=== PATIENT | female | born 1975 | race Caucasian/White ===

== ENCOUNTER 2021-08-06 17:09 | Observation (INO) ==
[2021-08-06 19:36] LABS: Alanine Aminotransferase 17 U/L (12-78); Albumin Level 4.2 gm/dl (3.4-5.0); Aspartate Aminotransferase 12 U/L (15-37); BUN Creatinine Ratio 18.1 (10-20); Blood Urea Nitrogen 11 mg/dl (7-18); Carbon Dioxide 27 mmol/L (21-32); Chloride 109 mmol/L (98-107); Est GFR (African American) 124.7 ml/min; Est GFR (Non-African American) 107.6 ml/min; Glucose 93 mg/dl (70-99); Lipase 182 U/L (73-393); Potassium 3.7 mmol/L (3.5-5.1); Sodium 140 mmol/L (136-145)
[2021-08-06 19:39] LABS: Albumin Globulin Ratio 1.2 (0.9-2); Alkaline Phosphatase 53 U/L (45-117); Bilirubin,Total 0.3 mg/dl (0.2-1); Globulin 3.5 gm/dl (2.5-4.0); Total Protein 7.7 gm/dl (6.4-8.2)
[2021-08-06 19:41] LABS: Basophils # (auto) 0.01 K/uL (0-0.2); Basophils % (auto) 0.2 %; Eosinophils # (auto) 0.04 K/uL (0-0.5); Eosinophils % (auto) 0.8 %; Hematocrit (blood only) 27.1 % (37-47); Hemoglobin 6.9 g/dL (12.0-16.0); Hypochromasia Present; Lymphocytes # (auto) 1.36 K/uL (1.2-3.4); Lymphocytes % (auto) 27.1 %; Mean Corpuscular Hemoglobin 16.9 pg (25-34); Mean Corpuscular Hgb Conc 25.5 g/dL (32-36); Mean Corpuscular Volume 66.3 fL (80-100); Mean Platelet Volume 9.9 fL (7.4-10.4); Monocytes # (auto) 0.41 K/uL (0.11-0.59); Monocytes % (auto) 8.2 %; Neutrophils % (auto) 63.7 %; Ovalocytes 1+; Platelet Count 321 K/uL (130-400); RDW Coefficient of Variation 19.7 % (11.5-14.5); RDW Standard Deviation 47.5 fL (36.4-46.3); Red Blood Count 4.09 M/uL (4.2-5.4); Tear Drop Cells 1+; White Blood Count 5.02 K/uL (4.8-10.8)
[2021-08-06 19:51] LABS: Appearance Urine Turbid (Clear); Bacteria Urine Automated 2+ (Negative); Bilirubin Urine Negative (Negative); Blood Urine Negative (Negative); Color Urine Yellow; Epithelial Cell Urine Auto >30 /lpf (0-5); Glucose Urine UA Negative (Negative); Ketones Urine Negative (Negative); Leukocyte Esterase Urine Negative (Negative); Nitrite Urine Negative (Negative); Protein Urine Negative (Negative); Specific Gravity Urine 1.017 (1.000-1.030); Urobilinogen Urine Negative (Negative); pH Urine 7.5 (4.5-7.5)
[2021-08-06 19:53] LABS: Microcytosis Present
[2021-08-06] MEDS ORDERED: OPTIRAY 320 100ml IV ONE (19:58)
[2021-08-06] MEDS ORDERED: SODIUM CHLORIDE 0.9% 1000ML 1,000 ML IV ONE (19:58)
[2021-08-06 20:01] LABS: Troponin I < 0.015 ng/ml (0-0.045)
--- NOTE | 2021-08-06 20:02 | Emergency Department Note ---
Impression & Plan Anemia, Lower abdominal pain, Fibroid, uterine ED Provider Note Provider: Kermit Martin MD DATE OF SERVICE: 08/06/2021 CHIEF COMPLAINT: Right lower abdominal pain HISTORY OF PRESENT ILLNESS: Patient is a 46-year-old male stay she woke this morning with some pain in her right lower abdomen. Little bit of pain she reports of the right back earlier but this is resolved. Pain has worsened a little bit. Took ibuprofen earlier with minimal improvement. Denies any nausea, vomiting, or diarrhea. Denies any bloody or black stools. Patient states she is has normal menstrual cycles but denies significantly heavy bleeding. Denies any lightheadedness, chest pain, shortness of breath. Denies any faintness. Given the continued pain she became concerned so came here for evaluation. Patient denies a history of blood transfusions or significant anemia to her report. Patient states she did notice a firmness in her right lower abdomen as well this afternoon that was different. Patient does have a history of 5 prior C-sections decades ago. REVIEW OF SYSTEMS: A total of 10 review of systems was obtained and negative except as stated above in the HPI. PAST MEDICAL HISTORY: As noted above MEDICATIONS: Denies current prescription medications SOCIAL HISTORY: [place], lives at home PHYSICAL EXAM: GENERAL: alert and oriented in no acute distress on stretcher Head: normocephalic and atraumatic EYES: No injection, discharge or icterus. NECK: Trachea midline. Supple. ENT: Mucous membranes pink and moist. LUNGS: Airway patent. No retractions or tachypnea HEART: Regular rate and rhythm. ABDOMEN: Soft not peritoneal with some moderate tenderness in the right lower quadrant. A small amount of firmness in the right lower quadrant abdominal wall is noted but no large reducible mass in the inguinal region. With nurse airline station agent Cate present, Hemoccult negative brown stool. SKIN: Acyanotic, warm, dry, without rashes EXTREMITIES: Without swelling, tenderness or deformity NEUROLOGICAL: No focal deficits. No aphasia. No facial droop or slurred speech. Ambulatory. EK bpm normal sinus rhythm. No PVC or PAC. No acute ST segment elevation or depression. QTC 421. CONTINUOUS CARDIAC MONITORING: was ordered and showed a heart rate of 60-80s bpm in NSR Patient's laboratory studies and imaging reviewed. Differential includes Appendicitis, ovarian cyst, ovarian torsion, ectopic , TOA, PID, infections, diverticulitis, UTI, obstruction, mesenteric ischemia, aortic pathology, inflammatory bowel disease, renal colic, PUD, pancreatitis, biliary pathology, hernia, volvulus, constipation, as well as other pathologies. IMPRESSION/MEDICAL DECISION MAKING: Patient with onset of abdominal pain earlier today. Denies nosebleeds or heavy vaginal bleeding. Denies any blood in the stool. Not particularly tachycardic or hypotensive here. Patient's blood count was rechecked as it is significantly low just around 7. Patient with some tenderness and slight abdominal wall fullness in the right lower quadrant. No severe electrolyte abnormality noted. No evidence of transaminitis or pancreatitis based on labs. Urinalysis not impressive for infection at this point. Does not seem that consistent with kidney stone. Could be appendicitis but concern for possible bleeding, hemorrhagic cyst, abdominal hematoma, or other pathology and thus a CT scan of the abdomen pelvis to be completed. Type and screen was sent to the blood bank. EKG and troponin were completed although not having acute chest pain. No evidence of demand ischemia. CT report as below questioned possible enteritis/ileus as well as noted enlarged fibrous uterus. Not having significant symptoms consistent with enteritis or gastroenteritis given her lack of nausea, vomiting, or diarrhea. No active bleeding or free fluid is noted per the radiologist interpretation. Patient again is not been significant tachycardic or hypotensive. Given her significant anemia however question at this could be related to her uterine fibroids. CT report again and the abdominal exam consistent with fibroid masses. Patient pain worsened some and she was requesting some pain medication such as ibuprofen and given Toradol. Hemoccult negative. Consented for blood and ordered 1 unit given her significant anemia. Again not horribly symptomatic here. Did reach out to gynecology he did not recommend any acute intervention. She is not having active vaginal bleeding right now. Reports that she has had heavy bleeding period for 4 to 5 days frequently in the past but nothing that abnormal pe rher report. Again hypothesizing if this is related to that and chronic but can positively exclude a GI bleed at this point. Given her increased pain in the anemia requiring transfusion discussed with her observation. Hospitalist contacted. DIAGNOSIS: Anemia, lower abdominal pain, uterine fibroids DISPOSITION: Hospitalist will evaluate Patient was agreeable with this plan. Preliminary Findings Only See Final Report For Complete Findings CT ABDOMEN & PELVIS With Contrast: Mild dependent atelectasis bilaterally. Small hypodensities in the liver, some of which measure simple fluid attenuation, compatible with simple cysts. Some of the hypodensities are too small to definitively characterize. Calcified granulomas in the spleen. Small splenules. Evaluation of the stomach is limited by under distention. Small hypodensities in the right kidney are too small to definitively characterize. Collapsing cyst or corpus luteum in the right ovary. Fluid and gas-filled small bowel loops may represent enteritis or ileus. Enlarged fibroid uterus. Underdistended bladder. Mild splenomegaly. Radiologist: Roxi Zavala M.D. Study ready at 22:01 and initial results transmitted at 22:08 Critical Care I have personally spent 31 minutes of critical care time in the direct management of this patient. This includes bedside care, interpretation of diagnostic studies, and testing, discussion with consultants, patient, and other required patient management activities. These 31 minutes is in excess of all separately billable procedures. Past Med/Surg History Social History Smoking Status: Never smoker Feels Safe at Home: Yes Allergies Allergies Allergy/AdvReac Type Severity Reaction Status Date / Time No Known Allergies Allergy Verified 08/06/21 23:52 [id number] Allergy Unknown .. Uncoded 08/06/21 23:52 Home Meds Home Medications Medication Instructions Recorded Confirmed ibuprofen 200 mg tablet 600 mg PO Q6H PRN 08/06/21 08/06/21 multivitamin 1 tab PO DAILY 08/06/21 08/06/21 Results & Data (ED) Vital Signs Vital Signs - 24 hr 08/06/21 17:23 08/06/21 19:59 08/06/21 21:57 Temperature 36.5 C Temperature Source Skin Pulse Rate 81 71 Pulse Rate [Finger] Pulse Rhythm [Finger] Respiratory Rate 16 Blood Pressure 117/71 Blood Pressure [Right Arm] Blood Pressure Mean 86 Blood Pressure Mean [Right Arm] Blood Pressure Position Sitting Pulse Oximetry 98 95 Oxygen Delivery Method Room Air Sepsis Recent Fever Within 48 Hours No Sepsis New/Unexplained Change in Mental Status No Sepsis Action Taken by Nursing No Action Required 08/06/21 22:00 08/06/21 22:30 08/06/21 22:52 Temperature 37 C Temperature Source Oral Pulse Rate 78 79 Pulse Rate [Finger] 81 Pulse Rhythm [Finger] Regular Respiratory Rate 17 15 18 Blood Pressure Blood Pressure [Right Arm] 128/77 Blood Pressure Mean Blood Pressure Mean [Right Arm] 94 Blood Pressure Position Pulse Oximetry 100 Oxygen Delivery Method Room Air Sepsis Recent Fever Within 48 Hours Sepsis New/Unexplained Change in Mental Status Sepsis Action Taken by Nursing 08/06/21 23:20 08/06/21 23:40 08/06/21 23:55 Temperature 37.1 C 37.0 C Temperature Source Oral Oral Pulse Rate 74 68 71 Pulse Rate [Finger] Pulse Rhythm [Finger] Respiratory Rate 16 18 16 Blood Pressure 143/73 H 113/71 106/67 Blood Pressure [Right Arm] Blood Pressure Mean 96 85 80 Blood Pressure Mean [Right Arm] Blood Pressure Position Lying Lying Pulse Oximetry 99 97 98 Oxygen Delivery Method Sepsis Recent Fever Within 48 Hours Sepsis New/Unexplained Change in Mental Status Sepsis Action Taken by Nursing Laboratory Data Result diagrams: 08/06/21 20:11 08/06/21 19:05 Lab Results 08/06/21 08/06/21 08/06/21 Range/Units 19:05 19:05 19:05 WBC 5.02 (4.8-10.8) K/uL RBC 4.09 L (4.2-5.4) M/uL Hgb 6.9 L* (12.0-16.0) g/dL POC Hgb (12.0-16.0) g/dl Hct 27.1 L (37-47) % POC Hct (37-47) % MCV 66.3 L (80-100) fL MCH 16.9 L (25-34) pg MCHC 25.5 L (32-36) g/dL RDW Std Deviation 47.5 H (36.4-46.3) fL RDW Coeff of Kitty 19.7 H (11.5-14.5) % Plt Count 321 (130-400) K/uL MPV 9.9 (7.4-10.4) fL Immature Gran % (Auto) 0.0 % Neut % (Auto) 63.7 % Lymph % (Auto) 27.1 % Bland % (Auto) 8.2 % Eos % (Auto) 0.8 % Baso % (Auto) 0.2 % Neut # (Auto) 3.20 (1.4-6.5) K/uL Lymph # (Auto) 1.36 (1.2-3.4) K/uL Bland # (Auto) 0.41 (0.11-0.59) K/uL Eos # (Auto) 0.04 (0-0.5) K/uL Baso # (Auto) 0.01 (0-0.2) K/uL Immature Gran # (Auto) 0.00 (0.00-0.02) K/uL Hypochromasia Present Microcytosis Present Tear Drop Cells 1+ Ovalocytes 1+ PT (9.0-12.0) Seconds INR (0.9-1.1) POC Sodium (135-144) mmol/L Sodium 140 (136-145) mmol/L POC Potassium (3.3-5.0) mmol/L Potassium 3.7 (3.5-5.1) mmol/L POC Chloride (101-112) mmol/L Chloride 109 H (98-107) mmol/L Carbon Dioxide 27 (21-32) mmol/L POC Total CO2 (24-31) mmol/L Anion Gap 4.0 (3-11) POC Anion Gap (16-25) mmol/L POC BUN (7-18) mg/dl BUN 11 (7-18) mg/dl Creatinine 0.63 (0.6-1.2) mg/dl POC Creatinine (0.6-1.3) mg/dl Est Cr Clr Drug Dosing 122.0 ml/min Est GFR ( Amer) 124.7 ml/min Est GFR (Non-Af Amer) 107.6 ml/min BUN/Creatinine Ratio 18.1 (10-20) Glucose 93 (70-99) mg/dl POC Glucose (other) (70-99) mg/dl Calcium 9.0 (8.5-10.1) mg/dl POC Ioniz Calcium Agatha (1.12-1.32) mmol/l Total Bilirubin 0.3 (0.2-1) mg/dl AST 12 L (15-37) U/L ALT 17 (12-78) U/L Alkaline Phosphatase 53 (45-117) U/L Troponin I < 0.015 (0-0.045) ng/ml Total Protein 7.7 (6.4-8.2) gm/dl Albumin 4.2 (3.4-5.0) gm/dl Globulin 3.5 (2.5-4.0) gm/dl Albumin/Globulin Ratio 1.2 (0.9-2) Lipase 182 (73-393) U/L Urine Color Yellow Urine Appearance Turbid A (Clear) Urine pH 7.5 (4.5-7.5) Ur Specific [place] 1.017 (1.000-1.030) Urine Protein Negative (Negative) Urine Glucose (UA) Negative (Negative) Urine Ketones Negative (Negative) Urine Blood Negative (Negative) Urine Nitrite Negative (Negative) Urine Bilirubin Negative (Negative) Urine Urobilinogen Negative (Negative) Ur Leukocyte Esterase Negative (Negative) Urine WBC (Auto) 5-10 H (0-5) /hpf Urine RBC (Auto) 5-10 H (0-4) /hpf U Hyaline Cast (Auto) 1-5 (0-5) /lpf U Epithel Cells (Auto) >30 H (0-5) /lpf Urine Bacteria (Auto) 2+ H (Negative) POC Ur Test (NEG) POC Stool Occult Blood (Negative) COVID-19 Eval Order SARS-CoV-2 (PCR) (Negative) Blood Type Antibody Screen Crossmatch 08/06/21 08/06/21 08/06/21 Range/Units 19:05 19:05 20:11 WBC (4.8-10.8) K/uL RBC (4.2-5.4) M/uL Hgb (12.0-16.0) g/dL POC Hgb (12.0-16.0) g/dl Hct (37-47) % POC Hct (37-47) % MCV (80-100) fL MCH (25-34) pg MCHC (32-36) g/dL RDW Std Deviation (36.4-46.3) fL RDW Coeff of Kitty (11.5-14.5) % Plt Count (130-400) K/uL MPV (7.4-10.4) fL Immature Gran % (Auto) % Neut % (Auto) % Lymph % (Auto) % Bland % (Auto) % Eos % (Auto) % Baso % (Auto) % Neut # (Auto) (1.4-6.5) K/uL Lymph # (Auto) (1.2-3.4) K/uL Bland # (Auto) (0.11-0.59) K/uL Eos # (Auto) (0-0.5) K/uL Baso # (Auto) (0-0.2) K/uL Immature Gran # (Auto) (0.00-0.02) K/uL Hypochromasia Microcytosis Tear Drop Cells Ovalocytes PT 10.0 (9.0-12.0) Seconds INR 1.0 (0.9-1.1) POC Sodium (135-144) mmol/L Sodium (136-145) mmol/L POC Potassium (3.3-5.0) mmol/L Potassium (3.5-5.1) mmol/L POC Chloride (101-112) mmol/L Chloride (98-107) mmol/L Carbon Dioxide (21-32) mmol/L POC Total CO2 (24-31) mmol/L Anion Gap (3-11) POC Anion Gap (16-25) mmol/L POC BUN (7-18) mg/dl BUN (7-18) mg/dl Creatinine (0.6-1.2) mg/dl POC Creatinine (0.6-1.3) mg/dl Est Cr Clr Drug Dosing ml/min Est GFR ( Amer) ml/min Est GFR (Non-Af Amer) ml/min BUN/Creatinine Ratio (10-20) Glucose (70-99) mg/dl POC Glucose (other) (70-99) mg/dl Calcium (8.5-10.1) mg/dl POC Ioniz Calcium Agatha (1.12-1.32) mmol/l Total Bilirubin (0.2-1) mg/dl AST (15-37) U/L ALT (12-78) U/L Alkaline Phosphatase (45-117) U/L Troponin I (0-0.045) ng/ml Total Protein (6.4-8.2) gm/dl Albumin (3.4-5.0) gm/dl Globulin (2.5-4.0) gm/dl Albumin/Globulin Ratio (0.9-2) Lipase (73-393) U/L Urine Color Urine Appearance (Clear) Urine pH (4.5-7.5) Ur Specific [place] (1.000-1.030) Urine Protein (Negative) Urine Glucose (UA) (Negative) Urine Ketones (Negative) Urine Blood (Negative) Urine Nitrite (Negative) Urine Bilirubin (Negative) Urine Urobilinogen (Negative) Ur Leukocyte Esterase (Negative) Urine WBC (Auto) (0-5) /hpf Urine RBC (Auto) (0-4) /hpf U Hyaline Cast (Auto) (0-5) /lpf U Epithel Cells (Auto) (0-5) /lpf Urine Bacteria (Auto) (Negative) POC Ur Test NEG (NEG) POC Stool Occult Blood (Negative) COVID-19 Eval Order SARS-CoV-2 (PCR) (Negative) Blood Type A Positive Antibody Screen NEGATIVE Crossmatch See Detail 08/06/21 08/06/21 08/06/21 Range/Units 20:11 20:21 22:00 WBC 5.21 (4.8-10.8) K/uL RBC 4.34 (4.2-5.4) M/uL Hgb 7.4 L (12.0-16.0) g/dL POC Hgb 9.2 L (12.0-16.0) g/dl Hct 29.4 L (37-47) % POC Hct 27 L (37-47) % MCV 67.7 L (80-100) fL MCH 17.1 L (25-34) pg MCHC 25.2 L (32-36) g/dL RDW Std Deviation 48.5 H (36.4-46.3) fL RDW Coeff of Kitty 19.6 H (11.5-14.5) % Plt Count 317 (130-400) K/uL MPV (7.4-10.4) fL Immature Gran % (Auto) % Neut % (Auto) % Lymph % (Auto) % Bland % (Auto) % Eos % (Auto) % Baso % (Auto) % Neut # (Auto) (1.4-6.5) K/uL Lymph # (Auto) (1.2-3.4) K/uL Bland # (Auto) (0.11-0.59) K/uL Eos # (Auto) (0-0.5) K/uL Baso # (Auto) (0-0.2) K/uL Immature Gran # (Auto) (0.00-0.02) K/uL Hypochromasia Microcytosis Tear Drop Cells Ovalocytes PT (9.0-12.0) Seconds INR (0.9-1.1) POC Sodium 141 (135-144) mmol/L Sodium (136-145) mmol/L POC Potassium 3.8 (3.3-5.0) mmol/L Potassium (3.5-5.1) mmol/L POC Chloride 104 (101-112) mmol/L Chloride (98-107) mmol/L Carbon Dioxide (21-32) mmol/L POC Total CO2 25 (24-31) mmol/L Anion Gap (3-11) POC Anion Gap 17.0 (16-25) mmol/L POC BUN 11 (7-18) mg/dl BUN (7-18) mg/dl Creatinine (0.6-1.2) mg/dl POC Creatinine 0.5 L (0.6-1.3) mg/dl Est Cr Clr Drug Dosing ml/min Est GFR ( Amer) ml/min Est GFR (Non-Af Amer) ml/min BUN/Creatinine Ratio (10-20) Glucose (70-99) mg/dl POC Glucose (other) 94 (70-99) mg/dl Calcium (8.5-10.1) mg/dl POC Ioniz Calcium Agatha 1.24 (1.12-1.32) mmol/l Total Bilirubin (0.2-1) mg/dl AST (15-37) U/L ALT (12-78) U/L Alkaline Phosphatase (45-117) U/L Troponin I (0-0.045) ng/ml Total Protein (6.4-8.2) gm/dl Albumin (3.4-5.0) gm/dl Globulin (2.5-4.0) gm/dl Albumin/Globulin Ratio (0.9-2) Lipase (73-393) U/L Urine Color Urine Appearance (Clear) Urine pH (4.5-7.5) Ur Specific [place] (1.000-1.030) Urine Protein (Negative) Urine Glucose (UA) (Negative) Urine Ketones (Negative) Urine Blood (Negative) Urine Nitrite (Negative) Urine Bilirubin (Negative) Urine Urobilinogen (Negative) Ur Leukocyte Esterase (Negative) Urine WBC (Auto) (0-5) /hpf Urine RBC (Auto) (0-4) /hpf U Hyaline Cast (Auto) (0-5) /lpf U Epithel Cells (Auto) (0-5) /lpf Urine Bacteria (Auto) (Negative) POC Ur Test (NEG) POC Stool Occult Blood (Negative) COVID-19 Eval Order Covid19 at [facility] SARS-CoV-2 (PCR) (Negative) Blood Type Antibody Screen Crossmatch 08/06/21 08/06/21 Range/Units 22:00 23:01 WBC (4.8-10.8) K/uL RBC (4.2-5.4) M/uL Hgb (12.0-16.0) g/dL POC Hgb (12.0-16.0) g/dl Hct (37-47) % POC Hct (37-47) % MCV (80-100) fL MCH (25-34) pg MCHC (32-36) g/dL RDW Std Deviation (36.4-46.3) fL RDW Coeff of Kitty (11.5-14.5) % Plt Count (130-400) K/uL MPV (7.4-10.4) fL Immature Gran % (Auto) % Neut % (Auto) % Lymph % (Auto) % Bland % (Auto) % Eos % (Auto) % Baso % (Auto) % Neut # (Auto) (1.4-6.5) K/uL Lymph # (Auto) (1.2-3.4) K/uL Bland # (Auto) (0.11-0.59) K/uL Eos # (Auto) (0-0.5) K/uL Baso # (Auto) (0-0.2) K/uL Immature Gran # (Auto) (0.00-0.02) K/uL Hypochromasia Microcytosis Tear Drop Cells Ovalocytes PT (9.0-12.0) Seconds INR (0.9-1.1) POC Sodium (135-144) mmol/L Sodium (136-145) mmol/L POC Potassium (3.3-5.0) mmol/L Potassium (3.5-5.1) mmol/L POC Chloride (101-112) mmol/L Chloride (98-107) mmol/L Carbon Dioxide (21-32) mmol/L POC Total CO2 (24-31) mmol/L Anion Gap (3-11) POC Anion Gap (16-25) mmol/L POC BUN (7-18) mg/dl BUN (7-18) mg/dl Creatinine (0.6-1.2) mg/dl POC Creatinine (0.6-1.3) mg/dl Est Cr Clr Drug Dosing ml/min Est GFR ( Amer) ml/min Est GFR (Non-Af Amer) ml/min BUN/Creatinine Ratio (10-20) Glucose (70-99) mg/dl POC Glucose (other) (70-99) mg/dl Calcium (8.5-10.1) mg/dl POC Ioniz Calcium Agatha (1.12-1.32) mmol/l Total Bilirubin (0.2-1) mg/dl AST (15-37) U/L ALT (12-78) U/L Alkaline Phosphatase (45-117) U/L Troponin I (0-0.045) ng/ml Total Protein (6.4-8.2) gm/dl Albumin (3.4-5.0) gm/dl Globulin (2.5-4.0) gm/dl Albumin/Globulin Ratio (0.9-2) Lipase (73-393) U/L Urine Color Urine Appearance (Clear) Urine pH (4.5-7.5) Ur Specific [place] (1.000-1.030) Urine Protein (Negative) Urine Glucose (UA) (Negative) Urine Ketones (Negative) Urine Blood (Negative) Urine Nitrite (Negative) Urine Bilirubin (Negative) Urine Urobilinogen (Negative) Ur Leukocyte Esterase (Negative) Urine WBC (Auto) (0-5) /hpf Urine RBC (Auto) (0-4) /hpf U Hyaline Cast (Auto) (0-5) /lpf U Epithel Cells (Auto) (0-5) /lpf Urine Bacteria (Auto) (Negative) POC Ur Test (NEG) POC Stool Occult Blood Negative (Negative) COVID-19 Eval Order SARS-CoV-2 (PCR) NEGATIVE (Negative) Blood Type Antibody Screen Crossmatch Administered Medications Discontinued Medications Sodium Chloride (Nss 1000ml) 1,000 mls @ 999 mls/hr IV .[id number] ONE Stop: 08/06/21 20:58 Last Infusion: 08/06/21 22:37 Dose: 0 mls/hr Documented by: [id number] Admin: 08/06/21 20:49 Dose: 999 mls/hr Documented by: [id number] Ioversol (Optiray 320 100ml) 94 ml IV ONCE ONE Stop: 08/06/21 19:59 Last Admin: 08/06/21 19:59 Dose: 1 ml Documented by: [id number] Ketorolac Tromethamine (Ketorolac Tromethamine 15 Mg/Ml Vial) 15 mg IV NOW STA Stop: 08/06/21 23:03 Last Admin: 08/06/21 23:35 Dose: 15 mg Documented by: [id number] Discharge Plan Visit Data Chief Complaint: Abdominal Pain Stated Complaint: LOWER R ABDOMINAL PAIN ED Provider: Kermit Martin Discharge Problem: Anemia, Lower abdominal pain, Fibroid, uterine Patient Disposition: Being Evaluated by Hospitalist Forms Stand Alone Forms: [facility] Prescriptions Prescriptions: No Action multivitamin Tablet 1 tab PO DAILY RF: 0 ibuprofen 200 mg Tablet 600 mg PO Q6H PRN (Reason: Pain) RF: 0 Referrals Referrals: PCP,NO [Primary Care Provider] -
[2021-08-06 20:33] LABS: iSTAT Creatinine 0.5 mg/dl (0.6-1.3); iSTAT Hemoglobin 9.2 g/dl (12.0-16.0); iSTAT Ionized Calcium 1.24 mmol/l (1.12-1.32); iSTAT Potassium 3.8 mmol/L (3.3-5.0)
[2021-08-06 20:53] LABS: Hematocrit (blood only) 29.4 % (37-47); Hemoglobin 7.4 g/dL (12.0-16.0); Mean Corpuscular Hemoglobin 17.1 pg (25-34); Mean Corpuscular Hgb Conc 25.2 g/dL (32-36); Mean Corpuscular Volume 67.7 fL (80-100); Platelet Count 317 K/uL (130-400); RDW Coefficient of Variation 19.6 % (11.5-14.5); RDW Standard Deviation 48.5 fL (36.4-46.3); Red Blood Count 4.34 M/uL (4.2-5.4); White Blood Count 5.21 K/uL (4.8-10.8)
[2021-08-06] MEDS ORDERED: SODIUM CHLORIDE 0.9% 250 ML IV PRN (23:02)
[2021-08-06] MEDS ORDERED: KETOROLAC TROMETHAMINE 15 MG/ML VIAL IV STA (23:02)
[2021-08-07 00:09] LABS: Iron 12 mcg/dl (35-150); Total Iron Binding Capacity 488 mcg/dl (250-450)
--- NOTE | 2021-08-07 00:12 | History & Physical Report ---
Date of Service August 07, 2021 Assessment & Plan (1) Anemia: Plan: Hemoglobin 7.4 upon admission. Hemoccult negative Patient reports heavy menstrual bleeding, likely associated with enlarged fibroid uterus ED is transfusing 1 unit P BRC's. Repeat laboratories in a.m. Unless develops other symptoms overnight, recommendation would be to establish care with HYDROGRAPHER (2) Lower abdominal pain: Plan: Secondary to fibroid uterus CT suggest possible enteritis/ileus, but patient reports no symptoms (3) Fibroid, uterine: Plan: As noted above, likely source of anemia due to associated significant menstrual bleeding We will need to follow-up with HYDROGRAPHER History of Present Illness Chief Complaint: The patient presents to the emergency department with complaint of lower abdominal and pelvic pain that began earlier this morning, without improvement with ibuprofen Primary Care Provider: NO PCP The patient is a 46-year-old female with known significant past medical history, who is not seen regularly by physicians, who presents to the emergency department symptoms as noted above. Work-up in the emergency department included the following abnormal laboratories: Hemoglobin 7.4, hematocrit 29.4. COVID-[address] scan of abdomen and pelvis: Liver cysts. Calcified granulomas in the spleen. Small splenule's. Collapsing cyst or corpus luteum in the right ovary. Fluid and gas-filled small bowel loops may represent enteritis or ileus. Enlarged fibroid uterus. Mild splenomegaly. Allergies Allergy/AdvReac Type Severity Reaction Status Date / Time No Known Allergies Allergy Verified 08/06/21 23:52 [id number] Allergy Unknown .. Uncoded 08/06/21 23:52 Home Medications Medication Instructions Recorded Confirmed Type ibuprofen 200 mg tablet 600 mg PO Q6H PRN 08/06/21 08/06/21 History multivitamin 1 tab PO DAILY 08/06/21 08/06/21 History Past Med/Surg History Social History Smoking Status: Never smoker Feels Safe at Home: Yes Review of Systems Review of Systems: The patient denies chest pain, palpitations, shortness of breath, dyspnea on exertion, cough, lower extremity swelling, sore throat, fevers, chills, sweats, weight change, fatigue, nausea, vomiting, diarrhea , constipation, blood in urine or stool, dysuria, urinary frequency or urgency, lightheadedness, dizziness, headache, memory loss, loss of consciousness, rash, abnormal bruising or bleeding, imbalance, focal or generalized weakness, numbness or tingling in arms or legs, generalized arthralgias or myalgias, back or neck pain, or night sweats. The review of systems is otherwise negative other than for that already noted above, and at least 10 systems have been reviewed. Physical Exam Physical Exam: The patient is awake, alert and oriented 3, well developed and well nourished, normocephalic and atraumatic, lying in bed and in no acute distress. HEENT--PERRL, EOMI, mucous membranes and oropharynx normal Neck--supple. No JVD. No bruits. Thyroid normal, trachea midline, no adenopathy. Heart--normal S1 and S2. No murmurs, rubs or gallops. Lungs--clear bilaterally, no respiratory distress, no accessory muscle use. Abdomen--normal bowel sounds and soft. Palpable masslike structure/uterus up to just below umbilicus Extremities--no cyanosis or clubbing. No edema. Dermatologic--normal skin turgor, normal color, no abnormal lymph nodes, no rash. Neurologic--cranial nerves II through XII grossly intact. Rheumatologic--normal range of motion. Psychiatric--normal affect. Results & Data Results & Data ([facility]) Vital Signs (Past 12 Hours) Vital Signs Temp Pulse Pulse Resp BP BP Pulse Ox 08/06/21 23:55 71 16 106/67 98 08/06/21 23:40 98.6 F 68 18 113/71 97 08/06/21 23:20 98.8 F 74 16 143/73 H 99 08/06/21 22:52 98.6 F 81 18 128/77 100 08/06/21 22:30 79 15 08/06/21 22:00 78 17 08/06/21 21:57 71 16 08/06/21 19:59 95 08/06/21 17:23 97.7 F 81 117/71 98 Laboratory Results Laboratory Results WBC 5.21 K/uL (4.8-10.8) 08/06/21 20:11 RBC 4.34 M/uL (4.2-5.4) 08/06/21 20:11 Hgb 7.4 g/dL (12.0-16.0) L 08/06/21 20:11 POC Hgb 9.2 g/dl (12.0-16.0) L 08/06/21 20:21 Hct 29.4 % (37-47) L 08/06/21 20:11 POC Hct 27 % (37-47) L 08/06/21 20:21 MCV 67.7 fL (80-100) L 08/06/21 20:11 MCH 17.1 pg (25-34) L 08/06/21 20:11 MCHC 25.2 g/dL (32-36) L 08/06/21 20:11 RDW Std Deviation 48.5 fL (36.4-46.3) H 08/06/21 20:11 RDW Coeff of Kitty 19.6 % (11.5-14.5) H 08/06/21 20:11 Plt Count 317 K/uL (130-400) 08/06/21 20:11 MPV 9.9 fL (7.4-10.4) 08/06/21 19:05 Immature Gran % (Auto) 0.0 % 08/06/21 19:05 Neut % (Auto) 63.7 % 08/06/21 19:05 Lymph % (Auto) 27.1 % 08/06/21 19:05 Wetzel % (Auto) 8.2 % 08/06/21 19:05 Eos % (Auto) 0.8 % 08/06/21 19:05 Baso % (Auto) 0.2 % 08/06/21 19:05 Neut # (Auto) 3.20 K/uL (1.4-6.5) 08/06/21 19:05 Lymph # (Auto) 1.36 K/uL (1.2-3.4) 08/06/21 19:05 Wetzel # (Auto) 0.41 K/uL (0.11-0.59) 08/06/21 19:05 Eos # (Auto) 0.04 K/uL (0-0.5) 08/06/21 19:05 Baso # (Auto) 0.01 K/uL (0-0.2) 08/06/21 19:05 Immature Gran # (Auto) 0.00 K/uL (0.00-0.02) 08/06/21 19:05 Hypochromasia Present 08/06/21 19:05 Microcytosis Present 08/06/21 19:05 Tear Drop Cells 1+ 08/06/21 19:05 Ovalocytes 1+ 08/06/21 19:05 PT 10.0 Seconds (9.0-12.0) 08/06/21 19:05 INR 1.0 (0.9-1.1) 08/06/21 19:05 POC Sodium 141 mmol/L (135-144) 08/06/21 20:21 Sodium 140 mmol/L (136-145) 08/06/21 19:05 POC Potassium 3.8 mmol/L (3.3-5.0) 08/06/21 20:21 Potassium 3.7 mmol/L (3.5-5.1) 08/06/21 19:05 POC Chloride 104 mmol/L (101-112) 08/06/21 20:21 Chloride 109 mmol/L (98-107) H 08/06/21 19:05 Carbon Dioxide 27 mmol/L (21-32) 08/06/21 19:05 POC Total CO2 25 mmol/L (24-31) 08/06/21 20:21 Anion Gap 4.0 (3-11) 08/06/21 19:05 POC Anion Gap 17.0 mmol/L (16-25) 08/06/21 20:21 POC BUN 11 mg/dl (7-18) 08/06/21 20:21 BUN 11 mg/dl (7-18) 08/06/21 19:05 Creatinine 0.63 mg/dl (0.6-1.2) 08/06/21 19:05 POC Creatinine 0.5 mg/dl (0.6-1.3) L 08/06/21 20:21 Est Cr Clr Drug Dosing 122.0 ml/min 08/06/21 19:05 Est GFR ( Amer) 124.7 ml/min 08/06/21 19:05 Est GFR (Non-Af Amer) 107.6 ml/min 08/06/21 19:05 BUN/Creatinine Ratio 18.1 (10-20) 08/06/21 19:05 Glucose 93 mg/dl (70-99) 08/06/21 19:05 POC Glucose (other) 94 mg/dl (70-99) 08/06/21 20:21 Calcium 9.0 mg/dl (8.5-10.1) 08/06/21 19:05 POC Ioniz Calcium Agatha 1.24 mmol/l (1.12-1.32) 08/06/21 20:21 Iron 12 mcg/dl (35-150) L 08/06/21 19:05 TIBC 488 mcg/dl (250-450) H 08/06/21 19:05 Total Bilirubin 0.3 mg/dl (0.2-1) 08/06/21 19:05 AST 12 U/L (15-37) L 08/06/21 19:05 ALT 17 U/L (12-78) 08/06/21 19:05 Alkaline Phosphatase 53 U/L (45-117) 08/06/21 19:05 Troponin I < 0.015 ng/ml (0-0.045) 08/06/21 19:05 Total Protein 7.7 gm/dl (6.4-8.2) 08/06/21 19:05 Albumin 4.2 gm/dl (3.4-5.0) 08/06/21 19:05 Globulin 3.5 gm/dl (2.5-4.0) 08/06/21 19:05 Albumin/Globulin Ratio 1.2 (0.9-2) 08/06/21 19:05 Lipase 182 U/L (73-393) 08/06/21 19:05 Urine Color Yellow 08/06/21 19:05 Urine Appearance Turbid (Clear) A 08/06/21 19:05 Urine pH 7.5 (4.5-7.5) 08/06/21 19:05 Ur Specific [place] 1.017 (1.000-1.030) 08/06/21 19:05 Urine Protein Negative (Negative) 08/06/21 19:05 Urine Glucose (UA) Negative (Negative) 08/06/21 19:05 Urine Ketones Negative (Negative) 08/06/21 19:05 Urine Blood Negative (Negative) 08/06/21 19:05 Urine Nitrite Negative (Negative) 08/06/21 19:05 Urine Bilirubin Negative (Negative) 08/06/21 19:05 Urine Urobilinogen Negative (Negative) 08/06/21 19:05 Ur Leukocyte Esterase Negative (Negative) 08/06/21 19:05 Urine WBC (Auto) 5-10 /hpf (0-5) H 08/06/21 19:05 Urine RBC (Auto) 5-10 /hpf (0-4) H 08/06/21 19:05 U Hyaline Cast (Auto) 1-5 /lpf (0-5) 08/06/21 19:05 U Epithel Cells (Auto) >30 /lpf (0-5) H 08/06/21 19:05 Urine Bacteria (Auto) 2+ (Negative) H 08/06/21 19:05 POC Ur Test NEG (NEG) 08/06/21 19:05 POC Stool Occult Blood Negative (Negative) 08/06/21 23:01 COVID-19 Eval Order Covid19 at [facility] 08/06/21 22:00 SARS-CoV-2 (PCR) NEGATIVE (Negative) 08/06/21 22:00 Blood Type A Positive 08/06/21 20:11 Antibody Screen NEGATIVE 08/06/21 20:11 Crossmatch See Detail 08/06/21 20:11 Diagnostic Findings [facility] Patient: HOLGER VALENZUELA (Female) : 75 Status: ER Date: 08/06/21 21:54 Room #: History: rlq pain anemia Slices: [phone] Priors: Tech: Amari Sheridan @ [phone] Exams: CT ABDOMEN & PELVIS With Contrast Contrast: IV Amt: 94 ml; optiVouchr Accession Numbers: [id number] Referring Physician: REFERRED SELF Preliminary Findings Only See Final Report For Complete Findings CT ABDOMEN & PELVIS With Contrast: Mild dependent atelectasis bilaterally. Small hypodensities in the liver, some of which measure simple fluid attenuation, compatible with simple cysts. Some of the hypodensities are too small to definitively characterize. Calcified granulomas in the spleen. Small splenules. Evaluation of the stomach is limited by under distention. Small hypodensities in the right kidney are too small to definitively characterize. Collapsing cyst or corpus luteum in the right ovary. Fluid and gas-filled small bowel loops may represent enteritis or ileus. Enlarged fibroid uterus. Underdistended bladder. Mild splenomegaly. Radiologist: Roxi Zavala M.D. Study ready at 22:01 and initial results transmitted at 22:08 *This report constitutes a preliminary interpretation only. Non-acute findings felt to be unrelated to the clinical presentation may not be discussed in this report. The study will be interpreted and a final report will be generated by the local Radiologist the following shift. To reach the hospital radiology department call [phone]. If a discrepancy is found between the preliminary and final interpretations of this study, please notify us via our Client Portal at [email or web address] under QA [email or web address].You can also fax this report with a description of the discrepancy, or include the final report, to our daytime fax number [phone].If faxing, please indicate the severity of discrepancy using one of the following categories: [ ] 1 - Agree/Informational [ ] 2 - Unlikely to Affect Management [ ] 3 - Possible Eventual Change of Management [ ] 4 - Probable Immediate Change of Management For all other patient related information, please fax us at [phone]. [id number] Code Status & VTE Plan Code Status Full code VTE Prophylaxis Plan VTE Prophylaxis will be ordered: Yes PG Care Time/CCT Total # of Minutes Spent Total Time Spent with Patient: Total time spent is greater than 50% in coordination of care (as documented) at patient's floor/unit and/or counseling patient: Coding Level of Care Code INT OBSERVATION CARE 70M LVL 3 Diagnoses Anemia D64.9 Anemia type: unspecified type Lower abdominal pain R10.30 Fibroid, uterine D25.9 Uterine leiomyoma location: unspecified location (1) Anemia Anemia type: unspecified type Qualified Code(s): D64.9 - Anemia, unspecified (2) Fibroid, uterine Uterine leiomyoma location: unspecified location Qualified Code(s): D25.9 - Leiomyoma of uterus, unspecified
[2021-08-07] MEDS ORDERED: NSS + 20MEQ KCL 20 MEQ/1,000 ML BAG IV SCH (03:00)
[2021-08-07] MEDS ORDERED: ONDANSETRON INJ 2 MG/ML 2 ML VIAL IV PRN (03:00)
[2021-08-07 03:51] LABS: Albumin Level 3.3 gm/dl (3.4-5.0); BUN Creatinine Ratio 16.6 (10-20); Calcium 8.3 mg/dl (8.5-10.1); Est GFR (African American) 125.3 ml/min; Est GFR (Non-African American) 108.1 ml/min; Potassium 3.5 mmol/L (3.5-5.1)
[2021-08-07 03:54] LABS: Hemoglobin 7.2 g/dL (12.0-16.0); Mean Corpuscular Hemoglobin 18.9 pg (25-34); Mean Corpuscular Hgb Conc 27.7 g/dL (32-36); Mean Corpuscular Volume 68.2 fL (80-100); Mean Platelet Volume 9.6 fL (7.4-10.4); Platelet Count 241 K/uL (130-400); RDW Coefficient of Variation 20.8 % (11.5-14.5); RDW Standard Deviation 51.9 fL (36.4-46.3); Red Blood Count 3.81 M/uL (4.2-5.4); White Blood Count 4.41 K/uL (4.8-10.8)
[2021-08-07 03:57] LABS: Basophils # (auto) 0.01 K/uL (0-0.2); Basophils % (auto) 0.2 %; Eosinophils # (auto) 0.08 K/uL (0-0.5); Eosinophils % (auto) 1.8 %; Giant Platelets 1+; Hypochromasia Present; Immature Granulocytes # (auto) 0.01 K/uL (0.00-0.02); Immature Granulocytes % (auto) 0.2 %; Lymphocytes # (auto) 1.63 K/uL (1.2-3.4); Monocytes # (auto) 0.44 K/uL (0.11-0.59); Neutrophils # (auto) 2.24 K/uL (1.4-6.5); Neutrophils % (auto) 50.8 %; Ovalocytes 1+; Tear Drop Cells 1+
[2021-08-07 03:59] LABS: Albumin Globulin Ratio 1.1 (0.9-2); Bilirubin,Total 0.6 mg/dl (0.2-1); Globulin 3.1 gm/dl (2.5-4.0); Total Protein 6.4 gm/dl (6.4-8.2)
[2021-08-07 04:25] LABS: Folate (Folic Acid) > 20.00 ng/ml (>5.38); Vitamin B12 377 pg/ml (193-986)
--- NOTE | 2021-08-07 07:56 | CT Scan Report ---
CT abd pelvis IV con only CLINICAL HISTORY: RLQ pain, anemia COMPARISON STUDY: None. TECHNIQUE: A dose lowering technique was utilized adhering to the principles of ALARA. CT DOSE: 439.90 mGy.cm FINDINGS: Lower chest: Mild atelectasis is seen at dependent portions of bilateral lower lobes.. Liver: The contrast-enhanced liver is normal in size, contour, and attenuation. There is no intrahepa tic biliary ductal dilatation. The hepatic veins and portal veins are patent. Multiple hypoattenuatin g lesions are seen throughout right and left lobe of the liver, largest is measuring 1.2 cm in diamet er is seen within left lobe of the liver. Statistically this lesions most likely represent cysts or h emangiomas. Gallbladder: Is fluid-filled and folded. No evidence of gallstones or pericholecystic edema is seen. Spleen: Normal in size and attenuation. Pancreas: Unremarkable. Adrenal glands: Unremarkable. Kidneys: There is symmetric renal cortical enhancement. The kidneys are normal in size without hydron ephrosis.No nephrolithiasis is seen. Multiple hypoattenuating lesions are seen within the right renal parenchyma, measuring up to 0.9 cm in size. Pelvic viscera: Urinary bladder is decompressed which limits evaluation. Uterus is enlarged with comp kierra heterogeneously enhancing 6.7 x 8.0 cm lesion within its wall which could represent fibroids vers us other etiology. Heterogeneous/complex appearance of the right adnexa a small amount of surrounding fluid and corpus l uteal pseudocyst. There is 2.5 cm possibly enhancing lesion is seen at the inferior aspect of the rig ht adnexa, anteriorly to the urinary bladder wall which could represent extension from adnexa or lachelle tional uterine fibroid. Bowel: Bowel loops are nondilated. Appendix is not well seen. Peritoneum: There is no intraperitoneal free air or abdominal ascites. Vasculature: The abdominal aorta is normal in course and caliber. Prominent right gonadal vein. Adenopathy: None. Skeletal structures: No destructive osseous lesions are seen. IMPRESSION: 1. Complex appearance of the right adnexa and corpus luteum cyst. Enlarged right gonadal vein which sometimes could be seen in pelvic congestion syndrome. Further evaluation with pelvic ultrasound migh t be considered. 2. Appendix is not well seen. No definite fat stranding is seen within the right lower quadrant. 3. Enlarged uterus with large heterogeneous mass within its wall which might represent fibroids vers us other etiology. Further evaluation with pelvic MRI on nonemergency basis is suggested. 4. Multiple hypoattenuating lesions within liver parenchyma and within right kidney, could represent cysts versus other etiology. 5. No hydronephrosis or nephrolithiasis. 6. The rest of findings as above. ACT 112: Negative or not required by law. The above report was generated using voice recognition software. It may contain grammatical, syntax o r spelling errors. Electronically signed by: Cristiana Gorman DO 08/07/2021 7:54 AM
[2021-08-07] MEDS: ACETAMINOPHEN 325 MG TAB PO PRN ×2 (08:23→17:24)
--- NOTE | 2021-08-07 09:03 | Electrocardiogram Report ---
Test Reason : Blood Pressure : / mmHG Vent. Rate : 071 BPM Atrial Rate : 071 BPM P-R Int : 158 ms QRS Dur : 072 ms QT Int : 388 ms P-R-T Axes : 067 010 022 degrees QTc Int : 421 ms Normal sinus rhythm Left atrial enlargement Low voltage QRS Borderline ECG No previous ECGs available Confirmed by Tate Guevara ([id number]) on 08/07/2021 9:03:10 AM Referred By: REFERRED SELF Confirmed By:Tate Guevara
[2021-08-07 09:25] LABS: Hematocrit (blood only) 28.5 % (37-47); Hemoglobin 7.4 g/dL (12.0-16.0)
[2021-08-07] MEDS ORDERED: KETOROLAC TROMETHAMINE 15 MG/ML VIAL IV ONE (11:00)
[2021-08-07] MEDS ORDERED: SODIUM CHLORIDE 0.9% 250 ML IV PRN ×2 (11:06→11:10)
--- NOTE | 2021-08-07 16:07 | OB/GYN Consultation ---
Date of Consultation August 07, 2021 Assessment & Plan (1) Anemia: I would suggest transfusing her at least 1 more unit of packed cells preferably 2. She is not currently bleeding nor does she have bleeding in between her periods. I suspect that the anemia has been getting worse over the last 6 months based on patient's history. (2) Fibroid, uterine: On ultrasound and by exam she has a large fundal fibroid and most likely multiple fibroids in her uterus. The 6 to 8 cm fibroid appears to be degenerating which can account for her current pain. Typically this pain is self-limiting and resolves after several days on both ibuprofen and narcotics as needed. Once her hemoglobin has been stabilized she should be able to be treated as AN outpatient and managed on p.o. pain medications. The plan would be to control it continue iron daily and to follow-up with the [facility] physician group [employer] physicians to discuss management of the uterine fibroids. There is a possibility that the degenerating fibroid may reduce in size as it i nvolutes on its own. Her periods may also decrease in heaviness as a result. She will need a follow-up ultrasound in our office to evaluate her her uterus, endometrial lining, and assess for other uterine fibroids. Our office will set up an appointment and ultrasound in our office for this coming week. History of Present Illness Reason for Consultation: anemia symptomatic uterine fibroids Attending Physician: Carmelo Small History of Present Illness The patient is a 46-year-old 5 para 5-0-0-5 white female who presents to the emergency room this morning because of persistent right lower quadrant pain. On evaluation she is noted to be anemic with a hemoglobin of 6. CT scan showed an enlarged uterus with a 6 to 8 cm heterogeneous mass on the fundus of the uterus and evidence of a recent corpus luteum cyst. Patient relates that she had been fine and without pain until the morning of her arrival emergency room she took ibuprofen which helped reduce the pain but not relieve it completely. The pain worsened and she presented in the emergency room especially after she could feel a mass in her right lower quadrant. Studies were noted as above as above. 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 On those days she changes a pad about every 2-3 hours. She has minimal cramping with her periods and no bleeding in between her periods. Her periods have gotten significantly heavier over the last 6 months. She also notes that her fatigue level has also increased during that same time. Obstetrically she has had 5 deliveries all . She had no complications following any of her sections. Her first section was done for failure to progress. Subsequent sections were scheduled. Her youngest child is now age 17. She does not have any chronic medical problems that she is aware of. Allergies Allergy/AdvReac Type Severity Reaction Status Date / Time No Known Allergies Allergy Verified 08/06/21 23:52 Home Medications Medication Instructions Recorded Confirmed Type ibuprofen 200 mg tablet 600 mg PO Q6H PRN 08/06/21 08/06/21 History multivitamin 1 tab PO DAILY 08/06/21 08/06/21 History Patient History Social History Smoking Status: Never smoker Hx Alcohol Use: No Hx Substance Use: No Preferred Language: Swedish Communication Ability: Effective Milliner Helper Required: No Beliefs That Will Affect Care: None Current Living Situation: Family Feels Safe at Home: Yes Assistive Devices: None Review of Systems Review of Systems: All systems reviewed & are unremarkable except as noted in HPI & below Physical Exam Constitutional: WD/WN, vitals as above Gastrointestinal (Abdomen): tender firm palpable mass in RLQ - uterus overall enlarged to 16 -17 week size. Uterus overall is firm and tender to palpation. Psychiatric: A+Ox3, euthymic affect Genitourinary: deferred Results & Data ([facility]) Vital Signs (Past 12 Hours) Vital Signs Temp Pulse Pulse Resp BP BP Pulse Ox 08/07/21 15:00 99.1 F 65 16 107/61 100 08/07/21 14:15 99.1 F 64 16 104/69 100 08/07/21 14:02 99.0 F 70 16 104/66 100 08/07/21 13:47 99.0 F 61 16 101/74 99 08/07/21 13:00 98.2 F 67 16 111/61 100 08/07/21 11:18 63 12 121/74 100 08/07/21 05:57 72 72 14 116/71 116/71 99 PG Care Time/CCT Total # of Minutes Spent Total Time Spent with Patient: Total time spent is greater than 50% in coordination of care (as documented) at patient's floor/unit and/or counseling patient: Coding Level of Care Code 56754 Office/OBS Consult Lvl 3 Diagnoses Anemia D64.9 Anemia type: unspecified type Fibroid, uterine D25.9 Uterine leiomyoma location: unspecified location (1) Anemia Anemia type: unspecified type Qualified Code(s): D64.9 - Anemia, unspecified (2) Fibroid, uterine Uterine leiomyoma location: unspecified location Qualified Code(s): D25.9 - Leiomyoma of uterus, unspecified
[2021-08-07 17:54] LABS: Hemoglobin 8.8 g/dL (12.0-16.0); Mean Corpuscular Hemoglobin 19.8 pg (25-34); Mean Corpuscular Hgb Conc 27.5 g/dL (32-36); Mean Corpuscular Volume 72.1 fL (80-100); Platelet Count 249 K/uL (130-400); RDW Coefficient of Variation 21.3 % (11.5-14.5); RDW Standard Deviation 56.5 fL (36.4-46.3); Red Blood Count 4.44 M/uL (4.2-5.4); White Blood Count 4.71 K/uL (4.8-10.8)
[2021-08-07 18:10] LABS: Basophils # (auto) 0.01 K/uL (0-0.2); Basophils % (auto) 0.2 %; Eosinophils # (auto) 0.09 K/uL (0-0.5); Eosinophils % (auto) 1.9 %; Hypochromasia Present; Immature Granulocytes # (auto) 0.01 K/uL (0.00-0.02); Immature Granulocytes % (auto) 0.2 %; Lymphocytes # (auto) 1.38 K/uL (1.2-3.4); Lymphocytes % (auto) 29.3 %; Monocytes % (auto) 8.5 %; Neutrophils # (auto) 2.82 K/uL (1.4-6.5); Neutrophils % (auto) 59.9 %; Ovalocytes 1+; Polychromasia 1+
[2021-08-07 21:29] LABS: Hemoglobin 8.8 g/dL (12.0-16.0)
[2021-08-08] MEDS: ACETAMINOPHEN 325 MG TAB PO PRN (00:14)
[2021-08-08 06:51] LABS: Hematocrit (blood only) 32.1 % (37-47); Hemoglobin 8.9 g/dL (12.0-16.0); Mean Corpuscular Hemoglobin 19.8 pg (25-34); Mean Corpuscular Hgb Conc 27.7 g/dL (32-36); Mean Corpuscular Volume 71.3 fL (80-100); Platelet Count 244 K/uL (130-400); RDW Coefficient of Variation 21.3 % (11.5-14.5); RDW Standard Deviation 55.5 fL (36.4-46.3); White Blood Count 4.01 K/uL (4.8-10.8)
[2021-08-08 06:57] LABS: Anisocytosis Present; Basophils # (auto) 0.02 K/uL (0-0.2); Basophils % (auto) 0.5 %; Eosinophils # (auto) 0.11 K/uL (0-0.5); Eosinophils % (auto) 2.7 %; Hypochromasia Present; Lymphocytes # (auto) 1.49 K/uL (1.2-3.4); Lymphocytes % (auto) 37.2 %; Monocytes # (auto) 0.37 K/uL (0.11-0.59); Monocytes % (auto) 9.2 %; Neutrophils # (auto) 2.02 K/uL (1.4-6.5); Neutrophils % (auto) 50.4 %; Tear Drop Cells 1+
[2021-08-08 07:01] LABS: Albumin Level 3.4 gm/dl (3.4-5.0); BUN Creatinine Ratio 16.4 (10-20); Calcium 8.6 mg/dl (8.5-10.1); Creatinine Clr Calc Pharmacy 109.4 ml/min; Est GFR (African American) 124.7 ml/min; Est GFR (Non-African American) 107.6 ml/min; Potassium 4.1 mmol/L (3.5-5.1)
[2021-08-08 07:03] LABS: Albumin Globulin Ratio 1.1 (0.9-2); Bilirubin,Total 0.7 mg/dl (0.2-1); Globulin 3.2 gm/dl (2.5-4.0); Total Protein 6.6 gm/dl (6.4-8.2)
--- NOTE | 2021-08-08 08:12 | Gynecologic Progress Note ---
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 Hgb this AM is 8.9 would continue with iron supplement daily OUr office will call her to set up follow up appointment to discuss treatment options Admission and Anticipated Discharge Date Admission Date: August 07, 2021 Subjective She feels better over all -pain is better now as well- just taking po tylenol. no bleeding. received 2 units PRBC's. Review of Systems Review of Systems: All systems reviewed & are unremarkable except as noted in HPI & below Physical Exam Constitutional: WD/WN, vitals as above Gastrointestinal (Abdomen): tender mass RLQ - no change in size Psychiatric: A+Ox3, euthymic affect Results & Data ([facility]) Vital Signs (Past 12 Hours) Vital Signs Temp Pulse Pulse Resp BP Pulse Ox 08/08/21 07:54 65 08/08/21 07:17 98.4 F 67 18 123/76 97 08/08/21 04:25 98.2 F 68 18 132/78 96 08/08/21 00:27 98.8 F 66 18 136/82 99 08/07/21 22:19 66 PG Care Time/CCT Total # of Minutes Spent Total Time Spent with Patient: Total time spent is greater than 50% in coordination of care (as documented) at patient's floor/unit and/or counseling patient: Coding Level of Care Code 45860 Inpt Consult Level 3 Diagnoses Fibroid, uterine D25.9 Uterine leiomyoma location: unspecified location (1) Fibroid, uterine Uterine leiomyoma location: unspecified location Qualified Code(s): D25.9 - Leiomyoma of uterus, unspecified
[2021-08-08] MEDS ORDERED: oxyCODONE/ACETAMINOPHEN 5mg/325mg TAB PO PRN (08:13)
--- NOTE | 2021-08-09 16:25 | Discharge Summary ---
Date of Service August 08, 2021 Admission HPI Per Admitting Provider The patient is a 46-year-old female with known significant past medical history, who is not seen regularly by physicians, who presents to the emergency department symptoms as noted above. Work-up in the emergency department included the following abnormal laboratories: Hemoglobin 7.4, hematocrit 29.4. COVID-[address] scan of abdomen and pelvis: Liver cysts. Calcified granulomas in the spleen. Small splenule's. Collapsing cyst or corpus luteum in the right ovary. Fluid and gas-filled small bowel loops may represent enteritis or ileus. Enlarged fibroid uterus. Mild splenomegaly. Principal Diagnosis Acute blood loss anemia from heavy menstrual bleeding Discharge Exam The patient is awake, alert and oriented 3, well developed and well nourished, normocephalic and atraumatic, lying in bed and in no acute distress. HEENT--PERRL, EOMI, mucous membranes and oropharynx normal Neck--supple. No JVD. No bruits. Thyroid normal, trachea midline, no adenopathy. Heart--normal S1 and S2. No murmurs, rubs or gallops. Lungs--clear bilaterally, no respiratory distress, no accessory muscle use. Abdomen--normal bowel sounds and soft. Palpable masslike structure/uterus up to just below umbilicus Extremities--no cyanosis or clubbing. No edema. Dermatologic--normal skin turgor, normal color, no abnormal lymph nodes, no rash. Neurologic--cranial nerves II through XII grossly intact. Rheumatologic--normal range of motion. Psychiatric--normal affect. Discharge Data Allergies Allergy/AdvReac Type Severity Reaction Status Date / Time No Known Allergies Allergy Verified 08/06/21 23:52 Consultations 08/06/21 23:29 ED Decision to Admit Stat 08/07/21 08:26 Consult Gynecology Routine Ordered Studies 08/06/21 19:44 CT abd pelvis IV con only Urgent Hospital Course (1) Anemia: Hemoglobin 7.4 upon admission. Hemoccult negative Patient reports heavy menstrual bleeding, likely associated with enlarged fibroid uterus ED is transfusing 1 unit P BRC's. Repeat laboratories in a.m. Unless develops other symptoms overnight, recommendation would be to establish care with LABORATORY IMMUNOLOGIST After 2 units of PRBC, hemoglobin improved to 8.9. Patient is cleared for discharge. Appreciate input from BARREL MARKER I think she can be discharged from the customer support representative standpoint now. Hgb this AM is 8.9 would continue with iron supplement daily [facility] office will call her to set up follow up appointment to discuss treatment options (2) Lower abdominal pain: Secondary to fibroid uterus CT suggest possible enteritis/ileus, but patient reports no symptoms (3) Fibroid, uterine: As noted above, likely source of anemia due to associated significant menstrual bleeding We will need to follow-up with LABORATORY IMMUNOLOGIST Total Time Total Time Spent Total Time Spent (In Minutes): 32 Discharge Plan Discharge Items Patient Disposition: Home - Self-Care Reason For Visit: SYMPTOMATIC ANEMIA Discharge Diagnosis: Symptomatic anemia Activity: Resume your previous activity Non-emergency contact: Primary Care Provider Call non-emergency contact if: you have any medication questions Follow-up/Referrals: PCPMARIE [Primary Care Provider] - Diet: Regular Addtl Attending Provider Instructions: You have been hospitalized for an acute medical problem. During your stay at [facility], we have made an effort to correct the problem that brought you to the hospital while keeping you as comfortable as possible. Medications were used to bring your condition under control and your discharge instructions will include directions for any medications you should take after leaving the hospital. Please make sure you see your Primary Care Provider as part of your follow up plan. Addtl Jockey Agent Provider Instructions: [facility] office will call you to set up an appointment for a consultation to discuss treatment of the fibroids as well as an ultrasound. If you do not hear from our office by next Tuesday , or you have any concerns or your pain returns, please call our office: [phone] The pianos and organs salesperson during office hours is Karon- her extension is [phone] Pending Studies at Discharge: No Stand-Alone Forms: [facility], Smoking Cessation Medications and DC Order Prescriptions: New oxycodone-acetaminophen 5-325 mg tablet 1 tab PO Q6H PRN (Reason: pain) Qty: 14 RF: 0 ibuprofen 600 mg tablet 600 mg PO Q6H PRN (Reason: pain) Qty: 60 RF: 1 ferrous sulfate 325 mg (65 mg iron) tablet 325 mg PO DAILY Qty: 30 RF: 3 Continued multivitamin Tablet 1 tab PO DAILY RF: 0 ibuprofen 200 mg Tablet 600 mg PO Q6H PRN (Reason: Pain) RF: 0 Discharge Orders: Discharge Order (Routine); Ordered 08/08/21 Ordered By: Carmelo Small Admission Data Admit Date/Time: 08/07/21 00:12 Attending Provider: Carmelo Small Admit Provider: Real Lisa Primary Care Provider: PCP,NO Other Providers: Real Lisa ; Amie Silva ; Renuka Alba ; Ilene Hernadez ; Molly Yang ; Yolis Early ; Letty Escobedo ; Nick Gomez ; Amee Aquino ; Kat Santillan ; Jluis Kraft Other Interventions: Discharge Summary Assessment (RN) Last Done: 08/08/21 09:43 Coding Level of Care Code D/C DAY MANAGEMENT >30 MINS Diagnoses Anemia D64.9 Anemia type: unspecified type Lower abdominal pain R10.30 Fibroid, uterine D25.9 Uterine leiomyoma location: unspecified location
== END 2021-08-08 10:11 | disposition home or self-care (01) ==
LOC: EDINP 17:09 → ED 17:09 → SUATTDRO 08-07 00:12 → EDINP 08-07 01:26 → 2N 08-07 16:25

== ENCOUNTER 2021-08-27 15:24 | Inpatient (IN) ==
[2021-08-27 16:42] LABS: Basophils # (auto) 0.01 K/uL (0-0.2); Basophils % (auto) 0.2 %; Eosinophils # (auto) 0.08 K/uL (0-0.5); Eosinophils % (auto) 1.6 %; Hematocrit (blood only) 35.1 % (37-47); Hemoglobin 10.3 g/dL (12.0-16.0); Immature Granulocytes # (auto) 0.01 K/uL (0.00-0.02); Immature Granulocytes % (auto) 0.2 %; Lymphocytes # (auto) 0.88 K/uL (1.2-3.4); Lymphocytes % (auto) 17.8 %; Mean Corpuscular Hemoglobin 23.1 pg (25-34); Mean Corpuscular Hgb Conc 29.3 g/dL (32-36); Mean Corpuscular Volume 78.7 fL (80-100); Monocytes % (auto) 8.1 %; Neutrophils # (auto) 3.55 K/uL (1.4-6.5); Neutrophils % (auto) 72.1 %; Platelet Count 261 K/uL (130-400); RDW Coefficient of Variation 30.1 % (11.5-14.5); RDW Standard Deviation 82.2 fL (36.4-46.3); Red Blood Count 4.46 M/uL (4.2-5.4); White Blood Count 4.93 K/uL (4.8-10.8)
[2021-08-27 16:55] LABS: Partial Thromboplastin Ratio 0.9; Partial Thromboplastin Time 22.5 Seconds (21.0-31.0); Prothrombin Time 10.2 Seconds (9.0-12.0)
[2021-08-27 17:04] LABS: Alanine Aminotransferase 15 U/L (12-78); Albumin Level 3.7 gm/dl (3.4-5.0); Aspartate Aminotransferase 11 U/L (15-37); BUN Creatinine Ratio 11.6 (10-20); Blood Urea Nitrogen 7 mg/dl (7-18); Calcium 9.4 mg/dl (8.5-10.1); Carbon Dioxide 29 mmol/L (21-32); Chloride 105 mmol/L (98-107); Est GFR (African American) 125.3 ml/min; Est GFR (Non-African American) 108.1 ml/min; Glucose 107 mg/dl (70-99); Potassium 3.8 mmol/L (3.5-5.1); Sodium 138 mmol/L (136-145)
[2021-08-27 17:07] LABS: Alkaline Phosphatase 62 U/L (45-117); Bilirubin,Total 0.5 mg/dl (0.2-1); Globulin 3.7 gm/dl (2.5-4.0); Total Protein 7.4 gm/dl (6.4-8.2)
--- NOTE | 2021-08-27 17:28 | Emergency Department Note ---
Impression & Plan Bilateral pulmonary embolism, Acute deep vein thrombosis (DVT) of both lower extremities ED Provider Note NAME: HOLGER VALENZUELA AGE: 46 SEX: F : 1975 ARRIVES VIA: Walk-In INFORMANT: Patient ED PROVIDER(S): Pancho Barajas DO CHIEF COMPLAINT: b/l leg pain HPI: Patient is a 46-year-old female status post hysterectomy performed this past Tuesday by . She started having leg pain on Tuesday in the left leg and now its in bilateral legs. Is worse in the right leg and is an 8 out of 10. She denies any headache or change in vision. No chest pain or shortness of breath but does feel weak. Her belly pain is still present but improving. No dysuria, urgency or frequency. No other exacerbating or remitting factors. She has never had clots before. ROS: See above HPI for pertinent positives & negatives. A total of 10 systems reviewed and were otherwise negative. PAST MEDICAL HISTORY:See Below PAST SURGICAL HISTORY:See Below FAMILY HISTORY:See Below SOCIAL HISTORY:See Below HOME MEDICATIONS:See Below ALLERGIES:See Below VITALS:See Below PHYSICAL EXAMINATION: GENERAL: Sitting up in bed, alert, well appearing, well nourished, no distress, non-toxic EYE EXAM: normal conjunctiva. PERRL and EOM's grossly intact. OROPHARYNX: no exudate, no erythema, lips, buccal mucosa, and tongue normal and mucous membranes are moist NECK: supple, no nuchal rigidity, no adenopathy, non-tender LUNGS: Clear to auscultation. Normal chest wall mechanics HEART: no murmurs, S1 normal and S2 normal ABDOMEN: abdomen soft, non-tender, normo-active bowel sounds, no masses, no rebound or guarding. UPPER EXTREMITIES: upper extremities are grossly normal. LOWER EXTREMITIES: No pitting edema. NEURO EXAM: Normal sensorium, cranial nerves II-XII grossly intact, normal speech, no gross weakness of arms, no gross weakness of legs. MEDICAL DECISION MAKING: Patient is a 46-year-old female who was found as an outpatient have bilateral DVTs. She did have some chest pain while she was here after initial evaluation. IV was established with orders obtained. Labs show no significant leukocytosis and mild anemia 10.3. INR was unremarkable. BMP along with LFTs bilirubin was unremarkable. Ultrasound of the lower extremities was reviewed and fairly extensive. EKGs were unremarkable. CT angio of the chest showed bilateral PEs. Covid was negative. Discussed with Dr. Early from out any FLIGHT COMMUNICATIONS SPECIALIST in regards to anticoagulation with the recent hysterectomy performed on Tuesday. She reviewed the case with and believe that was reasonable to start heparin at this time. We only gave a half dose bolus initially and they will titrate up with heparin. Discussed with the hospitalist for further evaluation. Patient was updated bedside. She denied all other bleeding risk factors. Triage Nursing notes reviewed. Limited review of prior medical records performed Vital Signs: reviewed and remarkable for no significant abnormalities Differential diagnosis: DVT, musculoskeletal, infection, joint effusion, trauma, lymphedema, idiopathic, CHF, as well as other pathologies. ER treatment provided: See below Diagnostics interpreted by me: ECG: Sinus rhythm rate 70 Normal axis No PVCs QTC 399 T wave inversions in septal leads EKG #2 Sinus rhythm rate 74 Normal axis No PVCs T wave inversions in the septal leads QTC 401 Cardiac Monitoring: An order was placed for continuous cardiac monitoring. The monitor shows a rate of 72 with sinus rhythm. Laboratory studies: As stated above and show below. Imaging studies: CT angio of the chest shows bilateral PEs Consultation(s): Discussed with Dr. Early from not any DIGITAL MEDIA STRATEGIST service as discussed above Discussed with hospitalist for admission Procedures: none Critical Care: I have personally spent 32 minutes of critical care time in the direct management of this patient. This includes bedside care, interpretation of diagnostic studies, and testing, discussion with consultants, patient, and family members, and other required patient management activities. This 32 minutes is in excess of all separately billable procedures. Past Med/Surg History Medical History Abnormal uterine bleeding (AUB) Anemia Enlarged uterus Uterine fibroid Surgical History History of x 5 History of laparoscopy Family History Other No family history of adverse response to anesthesia Denies family history of Ovarian cancer Breast cancer Colorectal cancer Social History Smoking Status: Never smoker Second Hand Exposure: No; Hx Alcohol Use: No Hx Substance Use: No Preferred Language: Ivorian Communication Ability: Effective Administrator Pesticide Required: No Beliefs That Will Affect Care: None Current Living Situation: Family Feels Safe at Home: Yes Assistive Devices: None Allergies Allergies Allergy/AdvReac Type Severity Reaction Status Date / Time No Known Allergies Allergy Verified 08/27/21 19:11 Home Meds Home Medications Medication Instructions Recorded Confirmed ferrous sulfate 325 mg (65 mg 325 mg PO QAM 08/11/21 08/27/21 iron) tablet Previous Rx's Medication Instructions Recorded oxycodone-acetaminophen 5 mg-325 1 tab PO Q6H PRN #14 tab 08/08/21 mg tablet Results & Data (ED) Vital Signs Vital Signs - 24 hr 08/27/21 15:32 08/27/21 17:25 08/27/21 18:55 Temperature 36.5 C Temperature Source Temporal Artery Scan Pulse Rate 89 Pulse Rate [Left Finger] 80 Respiratory Rate 18 18 Respiratory Effort / Characteristics Non-Labored Spontaneous Respiratory Depth Normal Respiratory Pattern Regular Blood Pressure 109/73 Blood Pressure [Right Arm] 136/80 134/79 Blood Pressure Mean 85 Blood Pressure Mean [Right Arm] 98 97 Pulse Oximetry 97 100 Oxygen Delivery Method Room Air Room Air Sepsis Recent Fever Within 48 Hours No Sepsis New/Unexplained Change in Mental Status No Sepsis Action Taken by Nursing No Action Required Laboratory Data Result diagrams: 08/27/21 16:30 08/27/21 16:30 Lab Results 08/27/21 08/27/21 08/27/21 Range/Units 16:30 16:30 16:30 WBC 4.93 (4.8-10.8) K/uL RBC 4.46 (4.2-5.4) M/uL Hgb 10.3 L (12.0-16.0) g/dL Hct 35.1 L (37-47) % MCV 78.7 L (80-100) fL MCH 23.1 L (25-34) pg MCHC 29.3 L (32-36) g/dL RDW Std Deviation 82.2 H (36.4-46.3) fL RDW Coeff of Kitty 30.1 H (11.5-14.5) % Plt Count 261 (130-400) K/uL Immature Gran % (Auto) 0.2 % Neut % (Auto) 72.1 % Lymph % (Auto) 17.8 % Beaver % (Auto) 8.1 % Eos % (Auto) 1.6 % Baso % (Auto) 0.2 % Neut # (Auto) 3.55 (1.4-6.5) K/uL Lymph # (Auto) 0.88 L (1.2-3.4) K/uL Beaver # (Auto) 0.40 (0.11-0.59) K/uL Eos # (Auto) 0.08 (0-0.5) K/uL Baso # (Auto) 0.01 (0-0.2) K/uL Immature Gran # (Auto) 0.01 (0.00-0.02) K/uL Polychromasia 1+ PT 10.2 (9.0-12.0) Seconds INR 1.0 (0.9-1.1) APTT 22.5 (21.0-31.0) Seconds PTT Ratio 0.9 Sodium 138 (136-145) mmol/L Potassium 3.8 (3.5-5.1) mmol/L Chloride 105 (98-107) mmol/L Carbon Dioxide 29 (21-32) mmol/L Anion Gap 4.0 (3-11) BUN 7 (7-18) mg/dl Creatinine 0.62 (0.6-1.2) mg/dl Est Cr Clr Drug Dosing Not Reportable Est GFR ( Amer) 125.3 ml/min Est GFR (Non-Af Amer) 108.1 ml/min BUN/Creatinine Ratio 11.6 (10-20) Glucose 107 H (70-99) mg/dl Calcium 9.4 (8.5-10.1) mg/dl Total Bilirubin 0.5 (0.2-1) mg/dl AST 11 L (15-37) U/L ALT 15 (12-78) U/L Alkaline Phosphatase 62 (45-117) U/L Total Protein 7.4 (6.4-8.2) gm/dl Albumin 3.7 (3.4-5.0) gm/dl Globulin 3.7 (2.5-4.0) gm/dl Albumin/Globulin Ratio 1.0 (0.9-2) COVID-19 Eval Order SARS-CoV-2 (PCR) (Negative) 08/27/21 08/27/21 Range/Units 18:42 18:42 WBC (4.8-10.8) K/uL RBC (4.2-5.4) M/uL Hgb (12.0-16.0) g/dL Hct (37-47) % MCV (80-100) fL MCH (25-34) pg MCHC (32-36) g/dL RDW Std Deviation (36.4-46.3) fL RDW Coeff of Kitty (11.5-14.5) % Plt Count (130-400) K/uL Immature Gran % (Auto) % Neut % (Auto) % Lymph % (Auto) % Beaver % (Auto) % Eos % (Auto) % Baso % (Auto) % Neut # (Auto) (1.4-6.5) K/uL Lymph # (Auto) (1.2-3.4) K/uL Beaver # (Auto) (0.11-0.59) K/uL Eos # (Auto) (0-0.5) K/uL Baso # (Auto) (0-0.2) K/uL Immature Gran # (Auto) (0.00-0.02) K/uL Polychromasia PT (9.0-12.0) Seconds INR (0.9-1.1) APTT (21.0-31.0) Seconds PTT Ratio Sodium (136-145) mmol/L Potassium (3.5-5.1) mmol/L Chloride (98-107) mmol/L Carbon Dioxide (21-32) mmol/L Anion Gap (3-11) BUN (7-18) mg/dl Creatinine (0.6-1.2) mg/dl Est Cr Clr Drug Dosing Est GFR ( Amer) ml/min Est GFR (Non-Af Amer) ml/min BUN/Creatinine Ratio (10-20) Glucose (70-99) mg/dl Calcium (8.5-10.1) mg/dl Total Bilirubin (0.2-1) mg/dl AST (15-37) U/L ALT (12-78) U/L Alkaline Phosphatase (45-117) U/L Total Protein (6.4-8.2) gm/dl Albumin (3.4-5.0) gm/dl Globulin (2.5-4.0) gm/dl Albumin/Globulin Ratio (0.9-2) COVID-19 Eval Order Covid19 at [facility] SARS-CoV-2 (PCR) NEGATIVE (Negative) Administered Medications Heparin Sodium/Dextrose (Heparin Sodium/Dextrose) 25,000 units in 500 mls @ 22 mls/hr IV .[id number] NILA; Protocol Stop: 09/26/21 18:29 Last Admin: 08/27/21 18:51 Dose: 1,100 units/hr, 22 mls/hr Documented by: [id number] Cosigned by: [id number] Discontinued Medications Heparin Sodium (Porcine) (Heparin Sod (Porcine) 1000 Unit/Ml) 1 units IV NOW ONE Stop: 08/27/21 18:26 Last Admin: 08/27/21 18:52 Dose: 2,500 units Documented by: [id number] Cosigned by: [id number] Heparin Sodium/Dextrose (Heparin Iv Adult Wt-Based Standard With Bolus Protocol) 1 ea IV NOW STA; Protocol Stop: 08/27/21 18:11 Last Admin: 08/27/21 19:04 Dose: Not Given Documented by: [id number] Ioversol (Optiray 320 125ml) 120 ml IV ONCE ONE Stop: 08/27/21 17:46 Last Admin: 08/27/21 17:47 Dose: 120 ml Documented by: [id number] Oxycodone HCl (Oxycodone Hcl Ir 5 Mg Tab (Immediate Release)) 5 mg PO NOW STA Stop: 08/27/21 19:50 Last Admin: 08/27/21 20:20 Dose: Not Given Documented by: [id number] Oxycodone HCl (Oxycodone Hcl Ir 5 Mg Tab (Immediate Release)) Confirm Administered Dose 5 mg .ROUTE .STK-MED ONE Stop: 08/27/21 19:56 Last Admin: 08/27/21 19:57 Dose: 5 mg Documented by: [id number] Imaging Data Radiologist's Impression: Chest CTA 08/27/21 17:17 CHEST CTA for PULMONARY ARTER[address] CT DOSE: 295.96 mGy.cm HISTORY: Positive DVT. Assess for pulmonary emboli. TECHNIQUE: Multiaxial CT images of the chest were performed following the intravenous administration of contrast to evaluate the pulmonary arteries. Maximal intensity projection images were also obtained. A dose lowering technique was utilized adhering to the principles of ALARA. COMPARISON STUDY: None. FINDINGS: Normal caliber thoracic aorta with no evidence for dissection. The heart is normal in size. No pleural or pericardial effusions. There are multiple scattered bilateral segmental and subsegmental pulmonary emboli. No evidence for right-sided heart strain. Limited views of the upper abdomen demonstrate a few scattered hypodense lesions within the liver. These favor cysts. There is a punctate calcified granuloma within the spleen. Normal esophagus. No mediastinal or hilar lymphadenopathy. No fractures within the visualized osseous structures. No pneumothorax. A few scattered calcified granulomas are seen within the lungs. No pulmonary infarcts identified. No focal lung consolidations to suggest pneumonia. IMPRESSION: Extensive bilateral pulmonary emboli. No evidence for right-sided heart strain. ACT 112: Negative or not required by law. Electronically signed by: Rich Wall M.D. 08/27/2021 5:58 PM Discharge Plan Visit Data Chief Complaint: Abnormal Labs/Diagnostic Testing Stated Complaint: HAD US;FOUND BLOOD CLOTS IN BOTH LEGS ED Provider: Pancho Barajas Discharge Problem: Bilateral pulmonary embolism, Acute deep vein thrombosis (DVT) of both lower extremities Forms Stand Alone Forms: [facility] [employer] Prescriptions Prescriptions: No Action oxycodone-acetaminophen 5-325 mg tablet 1 tab PO Q6H PRN (Reason: pain) Qty: 14 RF: 0 ferrous sulfate 325 mg (65 mg iron) tablet 325 mg PO QAM RF: 0 Referrals Referrals: PCP,NO [Primary Care Provider] -
[2021-08-27] MEDS ORDERED: OPTIRAY 320 125ml IV ONE (17:45)
--- NOTE | 2021-08-27 18:00 | CT Scan Report ---
CHEST CTA for PULMONARY ARTERIES CT DOSE: 295.96 mGy.cm HISTORY: Positive DVT. Assess for pulmonary emboli. TECHNIQUE: Multiaxial CT images of the chest were performed following the intravenous administration of contrast to evaluate the pulmonary arteries. Maximal intensity projection images were also obtaine d. A dose lowering technique was utilized adhering to the principles of ALARA. COMPARISON STUDY: None. FINDINGS: Normal caliber thoracic aorta with no evidence for dissection. The heart is normal in size. No pleural or pericardial effusions. There are multiple scattered bilateral segmental and subsegment al pulmonary emboli. No evidence for right-sided heart strain. Limited views of the upper abdomen dem onstrate a few scattered hypodense lesions within the liver. These favor cysts. There is a punctate c alcified granuloma within the spleen. Normal esophagus. No mediastinal or hilar lymphadenopathy. No f ractures within the visualized osseous structures. No pneumothorax. A few scattered calcified granulo mas are seen within the lungs. No pulmonary infarcts identified. No focal lung consolidations to sugg est pneumonia. IMPRESSION: Extensive bilateral pulmonary emboli. No evidence for right-sided heart strain. ACT 112: Negative or not required by law. Electronically signed by: Rich Wall M.D. 08/27/2021 5:58 PM
[2021-08-27] MEDS ORDERED: Heparin IV Adult Wt-Based Standard WITH Bolus Protocol IV STA (18:10)
[2021-08-27] MEDS ORDERED: HEPARIN SOD (PORCINE) 1000 UNIT/ML IV ONE (18:25)
[2021-08-27] MEDS ORDERED: HEPARIN SODIUM/DEXTROSE 25,000 UNITS/500 ML BAG IV SCH (18:30)
[2021-08-27 19:19] LABS: Polychromasia 1+
--- NOTE | 2021-08-27 19:45 | History & Physical Report ---
Date of Service August 27, 2021 Assessment & Plan (1) Bilateral pulmonary embolism: Plan: Started on heparin IV drip in the ER. Will continue on this overnight. Switch to NOAC tomorrow if stable. (2) Anemia: Plan: Hgb increased from prior suspect from chronic fibroid bleeding Repeat CBC in AM (3) Acute deep vein thrombosis (DVT) of both lower extremities: Plan: Anticoagulation as above Plan: Diet - regular Dispositon - admit to med/tele Admission and Anticipated Discharge Date Admission Date: August 27, 2021 History of Present Illness Chief Complaint: DVT on outpatient imaging Primary Care Provider: NO PCP Prema Rosado is a 46 year old female who presents to the ER after outpatient imaging arranged by her CRYOLITE RECOVERY OPERATOR showed bilateral DVTs. She underwent laparoscopic supracervical hysterectomy and b/l salpingectomy performed by on August 24. Yesterday morning she noticed left leg swelling. Last night she noticed it in her right leg as well. She called her surgeon who organized outpatient US doppler which confirmed b/l DVTs and was sent to the ER for further workup. No history of DVT, PEs, autoimmune conditions, hypercoagulopathy. No family history of these either. In the ER CT for PE showed extensive bilateral pulmonary emboli. No evidence for right-sided heart strain. She was referred to medicine for admission and ongoing management of PE. Allergies Allergy/AdvReac Type Severity Reaction Status Date / Time No Known Allergies Allergy Verified 08/27/21 19:11 Home Medications Medication Instructions Recorded Confirmed Type oxycodone-acetaminophen 5 mg-325 1 tab PO Q6H PRN #14 tab 08/08/21 08/27/21 Rx mg tablet ferrous sulfate 325 mg (65 mg 325 mg PO QAM 08/11/21 08/27/21 History iron) tablet Past Med/Surg History Medical History Abnormal uterine bleeding (AUB) Anemia Enlarged uterus Uterine fibroid Surgical History History of x 5 History of laparoscopy Family History Other No family history of adverse response to anesthesia Denies family history of Ovarian cancer Breast cancer Colorectal cancer Social History Smoking Status: Unknown if ever smoked Second Hand Exposure: No; Hx Alcohol Use: No Hx Substance Use: No Preferred Language: Nepali Communication Ability: Effective Rivet Sticker Required: No Beliefs That Will Affect Care: None Current Living Situation: Spouse Other Information That Helps Us Care for You: No Feels Safe at Home: Yes Safety Concerns: Feels Safe At This Time Assistive Devices: None Review of Systems Review of Systems: All systems reviewed & are unremarkable except as noted in HPI & below Physical Exam Constitutional: WD/WN, vitals as above Respiratory: normal respiratory effort, lungs clear to auscultation Cardiovascular: RRR, no murmur, no edema Extremities: + calf tenderness (b/l right > left) Gastrointestinal (Abdomen): normal bowel sounds, soft, nontender, no hepatosplenomegaly Skin: no rashes, warm and dry Neurologic: moves all extremities and awake; not confused Psychiatric: A+Ox3, euthymic affect Results & Data Results & Data ([facility]) Vital Signs (Past 12 Hours) Vital Signs Temp Pulse Pulse Resp BP BP Pulse Ox 08/27/21 18:55 80 18 134/79 100 08/27/21 17:25 136/80 08/27/21 15:32 36.5 C 89 18 109/73 97 Diagnostic Findings CHEST CTA for PULMONARY ARTERIES CT DOSE: 295.96 mGy.cm HISTORY: Positive DVT. Assess for pulmonary emboli. TECHNIQUE: Multiaxial CT images of the chest were performed following the intravenous administration of contrast to evaluate the pulmonary arteries. Maximal intensity projection images were also obtained. A dose lowering technique was utilized adhering to the principles of ALARA. COMPARISON STUDY: None. FINDINGS: Normal caliber thoracic aorta with no evidence for dissection. The heart is normal in size. No pleural or pericardial effusions. There are multiple scattered bilateral segmental and subsegmental pulmonary emboli. No evidence for right-sided heart strain. Limited views of the upper abdomen demonstrate a few scattered hypodense lesions within the liver. These favor cysts. There is a punctate calcified granuloma within the spleen. Normal esophagus. No mediastinal or hilar lymphadenopathy. No fractures within the visualized osseous structures. No pneumothorax. A few scattered calcified granulomas are seen within the lungs. No pulmonary infarcts identified. No focal lung consolidations to suggest pneumonia. IMPRESSION: Extensive bilateral pulmonary emboli. No evidence for right-sided heart strain. BILATERAL LOWER EXTREMITY VENOUS DOPPLER HISTORY: bilateral lower leg pain s/p hysterectomy COMPARISON STUDY: None. FINDINGS: The right common femoral vein is patent. There is occlusive thrombus within the distal right superficial femoral vein, popliteal vein, posterior tibial vein, and peroneal veins. The left common femoral and superficial femoral veins are patent. There is occlusive DVT seen within the left popliteal vein, posterior tibial veins, peroneal veins, and anterior tibial veins. IMPRESSION: Extensive bilateral lower extremity DVT as described above. ECG Indication: chest pain Rate (beats per minute): 74 Rhythm: normal sinus Findings: no acute ischemic change Comparison ECG Date: from (August 06, 2021) Change: no significant change Code Status & VTE Plan Code Status Full VTE Prophylaxis Plan VTE Prophylaxis will be ordered: Yes PG Care Time/CCT Total # of Minutes Spent Total Time Spent with Patient: Total time spent is greater than 50% in coordination of care (as documented) at patient's floor/unit and/or counseling patient: Coding Level of Care Code 64079 Initial Inpt Care Lvl 2 Diagnoses Bilateral pulmonary embolism I26.99 Anemia D64.9 Anemia type: unspecified type Acute deep vein thrombosis (DVT) of both lower extremities I82.403 Affected thrombotic vein of extremity: unspecified vein of extremity (1) Anemia Anemia type: unspecified type Qualified Code(s): D64.9 - Anemia, unspecified (2) Acute deep vein thrombosis (DVT) of both lower extremities Affected thrombotic vein of extremity: unspecified vein of extremity Qualified Code(s): I82.403 - Acute embolism and thrombosis of unspecified deep veins of lower extremity, bilateral
[2021-08-27] MEDS ORDERED: oxyCODONE HCL IR 5 MG TAB (IMMEDIATE RELEASE) PO STA ×2 (19:49→23:59)
[2021-08-27] MEDS ORDERED: oxyCODONE HCL IR 5 MG TAB (IMMEDIATE RELEASE) ONE (19:55)
[2021-08-27] MEDS ORDERED: ACETAMINOPHEN 325 MG TAB PO PRN (23:59)
[2021-08-28 00:42] LABS: Partial Thromboplastin Ratio 1.4; Partial Thromboplastin Time 36.6 Seconds (21.0-31.0)
[2021-08-28] MEDS ORDERED: HEPARIN SOD (PORCINE) 1000 UNIT/ML IV ONE (00:47)
[2021-08-28] MEDS ORDERED: HEPARIN IV BOLUS 2,000 UNITS in SYRINGE 0 ML IV ONE (01:15)
[2021-08-28 06:51] LABS: Hematocrit (blood only) 32.2 % (37-47); Hemoglobin 9.2 g/dL (12.0-16.0); Mean Corpuscular Hemoglobin 22.9 pg (25-34); Mean Corpuscular Hgb Conc 28.6 g/dL (32-36); Mean Corpuscular Volume 80.1 fL (80-100); Mean Platelet Volume 9.9 fL (7.4-10.4); Platelet Count 206 K/uL (130-400); Red Blood Count 4.02 M/uL (4.2-5.4); White Blood Count 3.63 K/uL (4.8-10.8)
[2021-08-28 06:55] LABS: Anisocytosis Present; Basophils # (auto) 0.01 K/uL (0-0.2); Basophils % (auto) 0.3 %; Eosinophils # (auto) 0.12 K/uL (0-0.5); Eosinophils % (auto) 3.3 %; Lymphocytes # (auto) 1.22 K/uL (1.2-3.4); Lymphocytes % (auto) 33.6 %; Monocytes # (auto) 0.35 K/uL (0.11-0.59); Monocytes % (auto) 9.6 %; Neutrophils # (auto) 1.93 K/uL (1.4-6.5); Neutrophils % (auto) 53.2 %
[2021-08-28 07:08] LABS: Partial Thromboplastin Time 53.7 Seconds (21.0-31.0)
--- NOTE | 2021-08-28 08:19 | Hospitalist Progress Note ---
Date of Service August 28, 2021 Assessment & Plan (1) Bilateral pulmonary embolism: Plan: Started on heparin IV drip in the ER. Will continue on this overnight. CTA suggests extensive b/l PE no evidence of right heart strain seen on CTA, pt with recent laproscopic hysterectomy 08/24/21 (2) Anemia: Plan: Hgb increased from prior anemia is secondary to previous acute blood loss anemia from dysfunctional uterine bleeding leading to Iron deficiency anemia with last iron in July being 12 (3) Acute deep vein thrombosis (DVT) of both lower extremities: Plan: Anticoagulation as above Plan: Diet - regular Dispositon - admit to med/tele Admission and Anticipated Discharge Date Admission Date: August 27, 2021 Results & Data Results & Data ([facility]) Vital Signs (Past 12 Hours) Vital Signs Temp Pulse Pulse Resp BP BP Pulse Ox 08/28/21 07:54 66 08/28/21 07:00 98.8 F 67 16 100/64 97 08/28/21 04:03 98.2 F 73 16 106/66 97 08/28/21 01:00 99.1 F 76 18 122/77 99 08/27/21 22:49 84 18 108/72 98 PG Care Time/CCT Total # of Minutes Spent Total Time Spent with Patient: Total time spent is greater than 50% in coordinat ion of care (as documented) at patient's floor/unit and/or counseling patient: Coding Diagnoses Bilateral pulmonary embolism I26.99 Anemia D64.9 Anemia type: unspecified type Acute deep vein thrombosis (DVT) of both lower extremities I82.403 Affected thrombotic vein of extremity: unspecified vein of extremity (1) Anemia Anemia type: unspecified type Qualified Code(s): D64.9 - Anemia, unspecified (2) Acute deep vein thrombosis (DVT) of both lower extremities Affected thrombotic vein of extremity: unspecified vein of extremity Qualified Code(s): I82.403 - Acute embolism and thrombosis of unspecified deep veins of lower extremity, bilateral
[2021-08-28] MEDS ORDERED: RIVAROXABAN 15 MG TAB PO ONE (11:21)
--- NOTE | 2021-08-28 12:32 | Electrocardiogram Report ---
Test Reason : Blood Pressure : / mmHG Vent. Rate : 070 BPM Atrial Rate : 070 BPM P-R Int : 138 ms QRS Dur : 076 ms QT Int : 370 ms P-R-T Axes : 062 022 043 degrees QTc Int : 399 ms Normal sinus rhythm Possible Left atrial enlargement Septal infarct , age undetermined Abnormal ECG When compared with ECG of 06-AUG-2021 21:56, Septal infarct is now Present Confirmed by Loc Cain ([id number]) on 08/28/2021 12:32:23 PM Referred By: REFERRED SELF Confirmed By:Loc Cain
--- NOTE | 2021-08-28 15:06 | Discharge Summary ---
Date of Service August 28, 2021 Admission HPI Per Admitting Provider Prema Rosado is a 46 year old female who presents to the ER after outpatient imaging arranged by her HEEL [employer] LIFT SPLITTER showed bilateral DVTs. She underwent laparoscopic supracervical hysterectomy and b/l salpingectomy performed by on August 24. Yesterday morning she noticed left leg swelling. Last night she noticed it in her right leg as well. She called her surgeon who organized outpatient US doppler which confirmed b/l DVTs and was sent to the ER for further workup. No history of DVT, PEs, autoimmune conditions, hypercoagulopathy. No family history of these either. In the ER CT for PE showed extensive bilateral pulmonary emboli. No evidence for right-sided heart strain. She was referred to medicine for admission and ongoing management of PE. Principal Diagnosis Pulmonary embolism in the postoperative setting Discharge Exam The patient appeared well Vital signs as documented. Lungs are clear to auscultation and appear unlabored Cardiac exam, Rhythm is regular.. No murmurs, rubs or gallops. Abdominal exam reveals normal bowel sounds, soft non tender, no masses Extremities are nonedematous and both pedal pulses are normal. Neurologic exam is alert and oriented, no focal loss of strength or sensation Skin is without bruises or rashes her leg is tender but there is no cords Psychologically is without concerns for anxiety or depression. Discharge Data Allergies Allergy/AdvReac Type Severity Reaction Status Date / Time No Known Allergies Allergy Verified 08/27/21 19:11 Consultations 08/27/21 18:11 ED Decision to Admit Stat Ordered Studies 08/27/21 17:17 CT angio chest PE protocol Stat Hospital Course (1) Bilateral pulmonary embolism: Started on heparin IV drip in the ER. We discussed the pros and cons of DOAC versus Coumadin bridging with Lovenox. Despite the cost the patient wishes to go with DOAC we gave her Xarelto with a coupon she will follow up with her family doctor with regard to this family doctor appointment was scheduled for next week CTA suggests extensive b/l PE no evidence of right heart strain seen on CTA, pt with recent laproscopic hysterectomy 08/24/21 (2) Anemia: Hgb increased from prior anemia is secondary to previous acute blood loss anemia from dysfunctional uterine bleeding leading to Iron deficiency anemia with last iron in July being 12 (3) Acute deep vein thrombosis (DVT) of both lower extremities: Anticoagulation as above xarelto Diet - regular Dispositon - admit to med/tele Total Time Total Time Spent Total Time Spent (In Minutes): It required greater than 30 minutes to prepare this patient for discharge, I personally phoned her to discuss plan of care prior to initiating the decision to pay for [id number] Xarelto Discharge Plan Discharge Items Patient Disposition: Home - Self-Care Reason For Visit: BILATERAL PE Discharge Diagnosis: pulmonary embolism Activity: Per Instructions section Activity Comment: slowly increase activity, elevate legs as much as able Non-emergency contact: Primary Care Provider Call non-emergency contact if: you have any medication questions and your symptoms worsen Follow-up/Referrals: Alfonzo Stanley PA-C [Physician Wax Room Supervisor] - 09/04/21 11:30 am (This perla ointment is for primary care follow up, will be at the [facility] in [place], address [address] [place] [address]. Office phone number: [phone].) PCP,NO [Primary Care Provider] - Diet: Regular Addtl Attending Provider Instructions: You have been diagnosed with a blood clot that has traveled to your lungs. You will need to be on an anticoagulant for 6 months or so to help your body completely dissolve the blood clot and prevent further blood clots from forming You also continue to show a need for iron supplementation to help build up your blood counts please follow up with your family doctor and discuss your medications Medication Instructions: Your condition is typically treated with an anticoagulant. Anticoagulants will thin your blood to help prevent new clots. * You should take her medication exactly as directed. * Never skip a dose. * Never take a double dose. If you miss a dose, take it as soon as you remember. Call your Primary Care doctor if you experience any of the following: * Swelling or Pain in your leg * Sudden, continuous pain deep in a muscle * Pain that worsens when you are active or when you stand still for a long time * Chest Pain * Sudden Shortness of Breath * Rapid or pounding heart beat * Fainting * Dizziness * Cough with blood or bloody sputum * Sweating more than normal * Bruises * Heavy or uncontrolled bleeding * Blood in your urine, stool or vomit * Black or tarry stools Caring for Your Self at Home: * Avoid sitting, standing or lying down for long periods without moving your legs and feet * When traveling by car, stop to get out and move around at least once every 3 hours * On long airplane, train or bus rides, get up and move around when possible * If you can't get up, wiggle your toes and tighten your calves to keep your blood moving Follow Up: It is important for you to keep your follow up appointments with your medical provider. Pending Studies at Discharge: No Stand-Alone Forms: My [facility], Smoking Cessation Medications and DC Order Prescriptions: New Xarelto DVT-PE Treat 30d Start 15 mg (42)- 20 mg (9) tablets,dose pack See Rx Instructions .ROUTE .COMPLEX Qty: 51 RF: 0 Xarelto 20 mg tablet 20 mg PO DAILY Qty: 30 RF: 5 Continued oxycodone-acetaminophen 5-325 mg tablet 1 tab PO Q6H PRN (Reason: pain) Qty: 14 RF: 0 ferrous sulfate 325 mg (65 mg iron) tablet 325 mg PO QAM RF: 0 Discharge Orders: Discharge Order (Routine); Ordered 08/28/21 Ordered By: Jose Redd Admission Data Admit Date/Time: 08/27/21 18:29 Attending Provider: Jose Redd Admit Provider: Trav Morales Primary Care Provider: PCP,NO Other Providers: Trav Morales Other Interventions: Discharge Summary Assessment (RN) Last Done: 08/28/21 11:47 Coding Level of Care Code D/C DAY MANAGEMENT >30 MINS Diagnoses Bilateral pulmonary embolism I26.99 Anemia D64.9 Anemia type: unspecified type Acute deep vein thrombosis (DVT) of both lower extremities I82.403 Affected thrombotic vein of extremity: unspecified vein of extremity
--- NOTE | 2021-08-28 15:30 | Electrocardiogram Report ---
Test Reason : Blood Pressure : / mmHG Vent. Rate : 074 BPM Atrial Rate : 074 BPM P-R Int : 140 ms QRS Dur : 076 ms QT Int : 362 ms P-R-T Axes : 055 013 038 degrees QTc Int : 401 ms Normal sinus rhythm Possible Left atrial enlargement Borderline ECG When compared with ECG of 27-AUG-2021 16:26, (unconfirmed) Criteria for Septal infarct are no longer Present Confirmed by Loc Cain ([id number]) on 08/28/2021 3:30:06 PM Referred By: REFERRED SELF Confirmed By:Loc Cain
--- NOTE | 2021-09-18 06:59 | Coding Query ---
CODING QUERY To promote full compliance with coding requirements relating to patient care, provider participation is requested in all cases of briquette machine operator uncertainty. Please assist us with the question(s) below: Coding Question(s): Documentation on discharge states Pulmonary embolism in the postoperative setting. Please clarify below: ( ) Pulmonary Embolism is a complication of Laparoscopic Hysterectomy & Salpingectomy ( ) Pulmonary Embolism is NOT complication of Laparoscopic Hysterectomy & Salpingectomy ( ) Pulmonary Embolism is an expected outcome of the Laparoscopic Hysterectomy & Salpingectomy (xx ) Other Please Explain: Pulmonary Embolism in the post operative setting of a laproscopic hysterectomy Thank you Corona Vidales Principal Diagnosis: "that condition established after study, to be chiefly responsible for occasioning the admission of the patient to the hospital for care." Co-Existing Principal Diagnosis: "when two or more diagnoses equally meet the criteria for principal diagnosis as determined by the circumstances of admission, diagnostic work up, and/or therapy provided, and the Alphabetic Index, Tabular List, or another coding guideline does not provide sequencing direction, any one of the diagnoses may be sequenced first." "When the physician has documented what appears to be a current diagnosis in the body of the record, but has not included the diagnosis in the final diagnostic statement, the physician should be asked whether the diagnosis should be added." (Source Coding Clinic 2 QTR90. p3-4) JODI
== END 2021-08-28 12:59 | disposition home or self-care (01) | DRG 176 ==
LOC: ED 15:24 → SUATTDRO 18:29 → 2W 18:29